=== PATIENT | female | born 1975 | race Caucasian/White ===

== ENCOUNTER 2023-10-16 10:43 | Observation (INO) | payer OTHER, SELFPAY ==
[2023-10-16 14:58] LABS: #Basophils 0.03 10x3/uL (0.0-0.2); %Basophils 0.3 % (0.0-1.0); %Eosinophils 1.5 % (0.0-10.0); %Lymphocytes 22.8 % (21.0-51.0); %Monocytes 6.9 % (0.0-10.0); Hematocrit 39.9 % (36.0-47.0); Hemoglobin 13.6 g/dL (12.0-16.0); Mean Corpuscular HGB CONC 34.1 g/dL (32.0-36.0); Mean Corpuscular Hemoglobin 33.4 pg (27.0-31.0); Mean Platelet Volume 9.7 fL (7.4-10.4); Platelet Count 301 10x3/uL (130-400); Red Blood Cell (RBC) Count 4.07 mill/uL (4.20-5.40)
[2023-10-16 15:13] LABS: ALT (SGPT) 18 U/L (8-55); AST (SGOT) 14 U/L (5-34); Albumin 3.9 g/dL (3.5-5.0); Alkaline Phosphatase 62 U/L (40-110); Anion Gap 12 mmol/L (10-20); BUN (Urea Nitrogen) 8 mg/dL (7.0-18.7); Bilirubin, Total 0.3 mg/dL (0.2-1.2); Calc. Creatinine Clearance 0 mL/min (70-130); Calcium 9.4 mg/dL (7.8-10.44); Carbon Dioxide 23 mmol/L (22-29); Chloride 109 mmol/L (98-107); Estimated GFR 100; Glucose 101 mg/dL (70-105); Magnesium 1.9 mg/dL (1.6-2.6); Potassium 3.8 mmol/L (3.5-5.1); Protein, Total 6.9 g/dL (6.0-8.3); Sodium 140 mmol/L (136-145)
[2023-10-16 15:43] LABS: Bacteria/HPF 2+ HPF (None Seen); Bilirubin Negative (Negative); Blood, Urine Negative (Negative); CAUTI Indications for Culture Pelvic or flank pain; Clarity Clear (Clear); Glucose, Urine (Dipstick) Normal (Negative); Ketone, Urine Negative (Negative); Leukocyte Negative Leu/uL (Negative); Nitrite Negative (Negative); Protein, Urine (Dipstick) Negative (Neg-Trace); RBC/HPF None Seen HPF (0-3); Squamous Epithelial 0-3 HPF (0-3); Urobilinogen Normal mg/dL (Less than 2); WBC/HPF 0-3 HPF (0-3)
[2023-10-16 15:44] LABS: Pregnancy Test - Urine (BHCG) Negative (Negative); Pregu Control Background? CLEAR/WHITE (CLR/WHITE); Pregu Control Bar Appear? YES (CONTROL BAR)
[2023-10-16 15:45] LABS: Urine Culture Reflex No No
[2023-10-16] MEDS ORDERED: Acetaminophen 325 MG TAB PO PRN (17:30)
[2023-10-16] MEDS ORDERED: Ondansetron ODT 4 MG TAB SL PRN (17:30)
[2023-10-16] MEDS ORDERED: Ondansetron PF 4 MG/2 ML Vial IVP PRN ×2 (17:30→17:37)
[2023-10-16] MEDS ORDERED: Senokot S 8.6-50 MG TAB PO PRN (17:37)
[2023-10-16] MEDS ORDERED: Calcium Carbonate 500 MG ChewTAB PO PRN (17:37)
[2023-10-16] MEDS: Acetaminophen 325 MG TAB PO PRN (23:48)
[2023-10-17 00:57] VITALS: BMI 25.4
[2023-10-17] MEDS: Ketorolac Tromethamine 30 MG (1 mL) VIAL IVP SCH (01:02)
[2023-10-17 05:01] LABS: #Basophils 0.04 10x3/uL (0.0-0.2); %Basophils 0.4 % (0.0-1.0); %Eosinophils 2.9 % (0.0-10.0); %Monocytes 9.3 % (0.0-10.0); Hematocrit 37.2 % (36.0-47.0); Hemoglobin 12.6 g/dL (12.0-16.0); Mean Corpuscular HGB CONC 33.9 g/dL (32.0-36.0); Mean Corpuscular Hemoglobin 33.1 pg (27.0-31.0); Mean Corpuscular Volume 97.6 fL (78.0-98.0); Platelet Count 275 10x3/uL (130-400); RBC Distribution Width 12.3 % (11.5-14.5); Red Blood Cell (RBC) Count 3.81 mill/uL (4.20-5.40)
[2023-10-17 05:24] LABS: ALT (SGPT) 10 U/L (8-55); AST (SGOT) 13 U/L (5-34); Albumin 3.3 g/dL (3.5-5.0); Alkaline Phosphatase 61 U/L (40-110); Anion Gap 13 mmol/L (10-20); BUN (Urea Nitrogen) 10 mg/dL (7.0-18.7); Bilirubin, Total 0.2 mg/dL (0.2-1.2); Calc. Creatinine Clearance 90 mL/min (70-130); Carbon Dioxide 24 mmol/L (22-29); Chloride 108 mmol/L (98-107); Estimated GFR 87; Globulin 2.6 g/dL (2.4-3.5); Glucose 105 mg/dL (70-105); Potassium 3.6 mmol/L (3.5-5.1); Protein, Total 5.9 g/dL (6.0-8.3); Sodium 141 mmol/L (136-145)
[2023-10-17] MEDS: Enoxaparin 40 MG (0.4 mL) SYRINGE SC SCH (08:41)
[2023-10-17 12:12] LABS: Amphetamine Not Detected (NotDetected); Barbiturates Screen Not Detected (NotDetected); Benzodiazepine Screen Not Detected (NotDetected); Cocaine Metabolite Screen Not Detected (NotDetected); Methadone Not Detected (NotDetected); Methamphetamine Not Detected (NotDetected); Opiate Screen Not Detected (NotDetected); Oxycodone Screen Not Detected (NotDetected); Phencyclidine (PCP) Not Detected (NotDetected); THC/Cannabinoid Screen Not Detected (NotDetected); Tricyclic Screen Not Detected (NotDetected)
[2023-10-17] MEDS: Lorazepam 2 MG/ML VIAL SLOW IVP SCH (12:48)
[2023-10-17] MEDS: Sodium Chloride 0.9% 1,000 ML IV SCH (12:52)
[2023-10-17 16:50] VITALS: BP 109/75; TEMP 98.6
== END 2023-10-17 16:51 | disposition home or self-care (01) ==
LOC: ERS 10:43 → SUATTDRO 10:43 → 2SE 17:36
PROVIDERS: ADMIT Internal Medicine; ATTEND Emergency Medicine
DX: R25.9 Unspecified abnormal involuntary movements (principal); R56.9 Unspecified convulsions; R20.2 Paresthesia of skin; R00.2 Palpitations; R42 Dizziness and giddiness; H53.8 Other visual disturbances; F41.9 Anxiety disorder, unspecified; E78.5 Hyperlipidemia, unspecified; K21.9 Gastro-esophageal reflux disease without esophagitis; Z90.710 Acquired absence of both cervix and uterus; Z90.89 Acquired absence of other organs; F17.210 Nicotine dependence, cigarettes, uncomplicated; Z79.899 Other long term (current) drug therapy; Z88.5 Allergy status to narcotic agent
CPT/HCPCS: 36415; 70553; 80053; 80306; 81001; 81025; 83735; 83835; 84146; 84443; 85025; 93005; 93306; 93880; 95700; 95711; 95819; 96374; 96375; G0378; J1885; J2060; J7050

== ENCOUNTER 2024-03-05 08:37 | Emergency (ER) | payer OTHER, SELFPAY ==
[2024-03-05 09:14] LABS: #Basophils 0.04 10x3/uL (0.0-0.2); %Basophils 0.6 % (0.0-1.0); %Eosinophils 2.3 % (0.0-10.0); %Lymphocytes 24.7 % (21.0-51.0); %Monocytes 7.6 % (0.0-10.0); %Neutrophils 64.3 % (42.0-75.0); Hemoglobin 14.1 g/dL (12.0-16.0); Mean Corpuscular HGB CONC 33.6 g/dL (32.0-36.0); Mean Corpuscular Hemoglobin 33.3 pg (27.0-31.0); Mean Corpuscular Volume 99.3 fL (78.0-98.0); Mean Platelet Volume 9.5 fL (7.4-10.4); Platelet Count 300 10x3/uL (130-400); RBC Distribution Width 12.1 % (11.5-14.5); Red Blood Cell (RBC) Count 4.23 mill/uL (4.20-5.40)
[2024-03-05 09:33] LABS: ALT (SGPT) 11 U/L (8-55); AST (SGOT) 13 U/L (5-34); Albumin 4.2 g/dL (3.5-5.0); Alkaline Phosphatase 62 U/L (40-110); Anion Gap 12 mmol/L (10-20); BUN (Urea Nitrogen) 8 mg/dL (7.0-18.7); Bilirubin, Total 0.5 mg/dL (0.2-1.2); Calc. Creatinine Clearance 0 mL/min (70-130); Calcium 9.9 mg/dL (7.8-10.44); Carbon Dioxide 26 mmol/L (22-29); Chloride 108 mmol/L (98-107); Estimated GFR 82; Globulin 3.2 g/dL (2.4-3.5); Glucose 99 mg/dL (70-105); Potassium 3.8 mmol/L (3.5-5.1); Protein, Total 7.4 g/dL (6.0-8.3); Sodium 142 mmol/L (136-145)
[2024-03-05 09:40] LABS: Troponin I Less than 0.010 ng/mL (< 0.028)
[2024-03-05 10:08] LABS: Magnesium 2.2 mg/dL (1.6-2.6)
[2024-03-05] MEDS ORDERED: Iopamidol-370 76% 500 ML MDV (1 ML CHARGE) ONE (10:55)
== END 2024-03-05 11:38 | disposition home or self-care (01) ==
LOC: ERS 08:37
DX: K86.89 Other specified diseases of pancreas (principal); F17.210 Nicotine dependence, cigarettes, uncomplicated; Z79.899 Other long term (current) drug therapy
CPT/HCPCS: 71045; 71275; 80053; 83690; 83735; 83880; 84484; 85025; 93005; 94760; Q9967

== ENCOUNTER 2025-03-05 15:14 | Outpatient (CLI) | payer OTHER | END 2025-03-05 15:15 | disposition home or self-care (01) | LOC: SCSRAD 15:14 | PROVIDERS: ATTEND Orthopaedic Surgery | DX: M54.2 Cervicalgia (principal); Z98.890 Other specified postprocedural states | CPT/HCPCS: 72040 ==